=== PATIENT | female | born 1960 ===

== ENCOUNTER 2025-01-29 12:13 | Emergency (ER) | payer SELFPAY ==
[~2025-01-29 12:13] MED LIST: Iopamidol-370 76% 500 ML MDV (1 ML CHARGE) ONE
[2025-01-29] MEDS ORDERED: Ondansetron PF 4 MG/2 ML Vial ONE (12:47)
[2025-01-29 13:17] LABS: #Basophils Less than 0.03 10x3/uL (0.0-0.2); #Eosinophils 0.18 10x3/uL (0.0-0.7); #Monocytes 0.49 10x3/uL (0.11-0.59); #Neutrophils 6.11 10x3/uL (1.40-6.50); %Basophils 0.1 % (0.0-1.0); %Eosinophils 2.0 % (0.0-10.0); %Lymphocytes 22.7 % (21.0-51.0); %Monocytes 5.6 % (0.0-10.0); %Neutrophils 69.3 % (42.0-75.0); Hematocrit 41.3 % (36.0-47.0); Hemoglobin 13.2 g/dL (12.0-16.0); Mean Corpuscular Hemoglobin 27.8 pg (27.0-31.0); Mean Corpuscular Volume 86.9 fL (78.0-98.0); Platelet Count 213 10x3/uL (130-400); Red Blood Cell (RBC) Count 4.75 mill/uL (4.20-5.40); White Blood Cell (WBC) Count 8.82 10x3/uL (4.8-10.8)
[2025-01-29 13:36] LABS: ALT (SGPT) 22 U/L (Less than 34); AST (SGOT) 27 U/L (11-34); Albumin 4.2 g/dL (3.1-4.5); Alkaline Phosphatase 71 U/L (40-110); Anion Gap 12 mmol/L (10-20); BUN (Urea Nitrogen) 13 mg/dL (9.8-20.1); Bilirubin, Total 0.4 mg/dL (0.3-1.2); Calc. Creatinine Clearance 0 mL/min (70-130); Calcium 9.7 mg/dL (7.8-10.44); Carbon Dioxide 30 mmol/L (23-31); Chloride 104 mmol/L (98-107); Globulin 2.9 g/dL (2.4-3.5); Glucose 118 mg/dL (80-115); Lipase 18 U/L (8-78); Potassium 3.5 mmol/L (3.5-5.1); Sodium 142 mmol/L (136-145)
[2025-01-29 13:39] LABS: Bacteria/HPF None Seen HPF (None Seen); CAUTI Indications for Culture Pelvic or flank pain; Glucose, Urine (Dipstick) Normal (Negative); Leukocyte Negative Leu/uL (Negative); Protein, Urine (Dipstick) 20 mg/dL (Neg-Trace); RBC/HPF 0-3 HPF (0-3); Specific Gravity, Urine 1.019 (1.002-1.036)
[2025-01-29 13:40] LABS: Urine Culture Reflex No No
[2025-01-29] MEDS ORDERED: diphenhydrAMINE 50 MG/ML VIAL ONE (13:45)
[2025-01-29] MEDS ORDERED: Metoclopramide HCl 10 MG (2 mL) VIAL ONE (13:46)
[2025-01-29] MEDS ORDERED: Famotidine/PF 20 mg/2ml Vial ONE (16:45)
== END 2025-01-29 17:29 | disposition home or self-care (01) ==
LOC: ERS 12:13
DX: R11.2 Nausea with vomiting, unspecified (principal); R10.11 Right upper quadrant pain; E11.9 Type 2 diabetes mellitus without complications; I10 Essential (primary) hypertension
CPT/HCPCS: 74177; 76705; 80053; 81001; 83690; 84484; 85025; 93005; 96361; 96365; 96375; J1200; J2270; J2550; J2765; Q9967